=== PATIENT | female | born 1975 | race Caucasian/White ===

== ENCOUNTER → 2021-06-27 | Outpatient (CLI) | payer BC ==
--- NOTE | 2021-07-10 09:17 | MM ---
Reason for exam: clinical finding. Last mammogram was performed 6 years and 9 months ago. History: Patient is nulliparous. Family history of breast cancer in paternal aunt at age 60. Physical Findings: Nurse did not find any significant physical abnormalities on exam. [facility] Mammo w CAD NICK Bilateral CC, MLO, and XCCL view(s) were taken. Prior study comparison: September 28, 2014, mammogram, performed at [facility]. October 16, 2011, mammogram, performed at [facility]. The breast tissue is heterogeneously dense. This may lower the sensitivity of mammography. Medial asymmetric density left CC view is unchanged. Posterior central left MLO asymmetric density is more defined. ASSESSMENT: Incomplete: need additional imaging evaluation, BI-RAD 0 RECOMMENDATION: Special view mammogram of the left breast. (3D) Ultrasound of both breasts. [facility] will attempt to contact patient to return for supplemental views and ultrasound.
== END | disposition home or self-care (01) ==
LOC: RADMAMWWP 12:56
PROVIDERS: ATTEND Obstetrics & Gynecology
DX: N64.89 Other specified disorders of breast (principal); Z80.3 Family history of malignant neoplasm of breast
CPT/HCPCS: 77066